=== PATIENT | male | born 1985 | race Two or more races ===

== ENCOUNTER 2018-12-09 23:38 | Emergency (ER) | payer MEDICAID, OTHER ==
[~2018-12-09] VITALS: Ht 172.7 cm; Wt 74.8 kg
[2018-12-09 23:58] VITALS: BP 143/92
== END 2018-12-10 04:52 | disposition home or self-care (01) ==
LOC: ER 23:38
DX: S32.059A Unspecified fracture of fifth lumbar vertebra, initial encounter for closed fracture (principal); S32.049A Unspecified fracture of fourth lumbar vertebra, initial encounter for closed fracture; S22.089A Unspecified fracture of T11-T12 vertebra, initial encounter for closed fracture; M62.830 Muscle spasm of back; R51 Headache; M54.2 Cervicalgia; V43.52XA Car driver injured in collision with other type car in traffic accident, initial encounter; Y93.I9 Activity, other involving external motion; Y92.488 Other paved roadways as the place of occurrence of the external cause; Y99.8 Other external cause status
CPT/HCPCS: 70450; 72125; 72128; 72131